=== PATIENT | female | born 1940 | race Caucasian/White ===

== ENCOUNTER 2023-09-05 14:03 | Emergency (ER) | payer MEDICARE, OTHER, SELFPAY ==
[2023-09-05 14:08] VITALS: BP 140/92
[2023-09-05 14:33] VITALS: BMI 32.8
--- NOTE | 2023-09-05 15:15 | EDRN ---
Dr. Weinberg in room w/ pt.
--- NOTE | 2023-09-05 15:40 | ED.GENMED ---
History of Present Illness
General
Chief Complaint: Fall
Source: patient and spouse
Time Seen by Provider: 09/05/23 15:13
History of Present Illness
History of Present Illness:
82-year-old female presents emergency department after describing a fall that happened approximate 1 PM. She says she 'turned too quickly', and fell down onto the ceramic kitchen floor. She did hold onto the counter while she was falling, and
states that her left knee 'took the bulk of the fall'. She was able to 'shimmy' her body over 2 steps, put her legs on the step and stand up. She is able to move and says 'I doubt I broke something' because she is able to ambulate but she does
note pain in bilateral knees left greater than right with walking. She denies ankle pain, foot pain, hip pain, abdominal pain, back pain, loss of consciousness, head strike, headache, dizziness, neck pain, numbness, tingling, chest pain, dyspnea,
or other complaints.
Past History
Past History
ED Past Medical History: COPD, Fibromyalgia, GERD, HTN, Hypercholesterolemia, NIDDM and Other (Lung Nodules, chronic pain)
ED Past Surgical History: Bowel resection (Diverticulitis with colostomy and then reversal), Cholecystectomy, Orthopedic (left hip replacement) and Urological (Bladder Surgery)
Social History
Tobacco: Former smoker
Alcohol: None
Personal:
Living: with family
Phy Exam
Physical Exam
Physical Exam:
GENERAL: Alert , in no apparent distress, overall well-appearing, making jokes
EYE: pupils equal and reactive, no photophobia
NECK: Supple, no significant adenopathy, no midline tenderness.
ENT: o/p clr, mmm, no blue, no raccoon, no signs of head or facial injury noted on exam.
CARDIAC: Regular rate and rhythm .
LUNGS: Clear breath sounds bilaterally, no acute respiratory distress, no wheezes/rales/rhonchi
ABDOMEN: Soft, without focal tenderness, no r/g, no cvat
Back no bruising noted, nontender to midline palpation
NEUROLOGICAL: Alert and oriented, no focal neuro deficits
SKIN: Warm and dry, skin intact.
MUSCULOSKELETAL: 2+ DP pulses bilaterally, well-perfused. There is swelling noted at the left greater than right patellar area with associated bruising and tenderness to palpation. No specific deformity noted. Able to flex at the hip without
difficulty. Knee range of motion slightly limited due to pain. Full range of motion of ankle foot etc. without discomfort or tenderness to palpation. Patient has full range of motion of her left elbow without associated swelling or bruising,
triage note noted.
PSYCH: Normal and appropriate interaction.
Course
Orders/Labs/Results
Orders:
Orders
09/05/23 15:32
Oxycodone [Roxicodone] 5 mg PO NOW STA
Knee, Left 4 or More Views [CR Knee - Left 4 Or More View*] Urgent
Comment:
Reason For Exam: fall
Knee, Right 4 or More Views [CR Knee- Right 4 Or More View*] Urgent
Comment:
Reason For Exam: fall
Vital Signs
Initial and Last Documented VS:
Initial Vital Signs
Temp Pulse Resp BP Pulse Ox
98.0 F 80 16 140/92 98
09/05/23 14:08 09/05/23 14:08 09/05/23 14:08 09/05/23 14:08 09/05/23 14:08
Last Documented Vital Signs
Temp Pulse Resp BP Pulse Ox
98.0 F 66 16 175/85 96
09/05/23 14:08 09/05/23 17:26 09/05/23 17:26 09/05/23 17:26 09/05/23 17:26
*Critical Care Note
Total Time (30-74mins, 75-104mins- exclusive of procedures): Not Applicable
Update Note
Update Note:
Patient presents to the Emergency Department with ___fall
Number and Complexity of Problems Addressed at the Encounter
� Chronic conditions affecting care:
� Acute Exacerbation and/or Progression of Chronic Illness:
� Differential Diagnosis includes: But not limited to contusion, sprain, fracture, etc.
Amount and/or Complexity of Data to be Reviewed and Analyzed
� I performed an independent evaluation of and my interpretation is:
EKG:
CT:
Xrays:nad bilat xray knees. formal report No radiographic evidence for acute fracture or joint effusion.
2. Moderate osteoarthritis in the medial compartment of the right knee.
3. Mild osteoarthritis in the lateral and patellofemoral compartments.
4. Severe diffuse soft tissue swelling and subcutaneous edema.
Laboratory Studies:
Other:
� Review of other/old records reveals:
� Clinical information was obtained by an independent historian: who is bedside
� Prescriptions/Medications Considered but not given:
� Further testing considered but not performed:
Risk of Complications and/or Morbidity or Mortality of Patient Management
� Social determinants of health affecting care:
� Discussion with other providers (PCP, Hospitalists, Consultants, etc):
� Escalation of care including admission/observation vs risk of discharge considered:Long discussion with patient and , she is eager to go home and reassured that no fracture noted. She was noted to walk around room
without great difficulty and plans to use her cane at home until she feels fully better. She declines a walker. She requests a wheelchair to get to the car but again reassures all of us that she does not have concerns about being able to ambulate
at home.
ED Attending Note
-
Portions of this chart may have been created with voice recognition software.� Occasional wrong word or��sound alike� substitutions may have occurred due to the inherent limitations of voice recognition software.
Discharge Plan
Departure
Patient Disposition: Home (Routine Discharge)
Date of Disposition: 09/05/23
Time of Disposition: 17:44
Patient with high blood pressure during this ER visit?: Yes
Condition: Good
Discharge Problem:
Contusion of knee
Instructions: Contusion (DC), Preventing falls in adults, BLOOD PRESSURE
Prescriptions:
No Action
aspirin 81 MG tablet,chewable
81 mg PO HS
albuterol sulfate [Ventolin HFA] 90 MCG/PUFF HFA aerosol inhaler
1 puff inhalation PRN PRN (Reason: sob)
Vit B12
50,000 unit PO DAILY
meloxicam 15 mg Tablet
15 mg PO HS
lisinopril 20 mg Tablet
20 mg PO HS
amlodipine 5 mg Tablet
5 mg PO HS
senna 8.6 mg Capsule
8.6 mg PO HS
pregabalin [Lyrica] 50 mg Capsule
50 mg PO BID
esomeprazole magnesium [address] For Susp In Packet
20 mg PO HS
fluticasone furoate-vilanterol [Breo Ellipta] 200-25 mcg/dose Blister With Device
1 inh INHALATION PRN PRN (Reason: shortness)
duloxetine 60 mg Capsule, Delayed Rel Sprinkle
60 mg PO HS
multivitamin Tablet
1 tab PO DAILY
ferrous sulfate [iron] 325 mg (65 mg iron) Tablet
325 mg PO DAILY
fentanyl 25 mcg/hr Patch 72 Hour
1 patch TRANSDERMAL Q72H
cholecalciferol (vitamin D3) [Vitamin D3] 50 mcg (2,000 unit) Capsule
50 mcg PO DAILY
oxycodone 5 mg tablet
5 mg PO Q6H PRN (Reason: Pain) Qty: 30 0RF
Referrals:
Alvaro Charles MD [Family Provider] - Follow up in 2-3 days
Activity Restrictions/Additional Instructions:
IF YOU DEVELOP PERSISTENT/NEW/WORSENING PAIN, ANY FEVER, CHILLS, NUMBNESS, WEAKNESS, OR OTHER WORRISOME SIGNS, GO TOTHE ER IMMEDIATELY!
Interventions
Interventions:
*Risk Screen - Suicide Last Done: 09/05/23 14:34
*General Assessment Last Done: 09/05/23 14:34
*Neglect/Abuse Screening Last Done: 09/05/23 14:34
ED- Fall Risk Assessment Last Done: 09/05/23 14:34
*ED COVID-19 Vaccine History Last Done: 09/05/23 14:34
ED-Musculoskeletal Assessment Last Done: 09/05/23 14:35
ED- Neurological Assessment Last Done: 09/05/23 14:35
ED-Skin Assessment Last Done: 09/05/23 15:26
Discharge Date and Time
Print Language: BULGARIAN
[2023-09-05] MEDS: ROXICODONE 5 MG PO (15:42)
[2023-09-05 15:47] VITALS: BP 142/78
--- NOTE | 2023-09-05 17:22 | EDRN ---
Dr. Weinberg in room w/ pt at this time.
[2023-09-05 17:26] VITALS: BP 175/85
== END 2023-09-05 17:50 | disposition home or self-care (01) ==
LOC: EMR 14:03
PROVIDERS: EMERGENCY PHYSICIAN Emergency Medicine; FAMILY PHYSICIAN Family Medicine
DX: S80.02XA Contusion of left knee, initial encounter (principal); S80.01XA Contusion of right knee, initial encounter; W19.XXXA Unspecified fall, initial encounter; J44.9 Chronic obstructive pulmonary disease, unspecified; M79.7 Fibromyalgia; K21.9 Gastro-esophageal reflux disease without esophagitis; I10 Essential (primary) hypertension; E78.00 Pure hypercholesterolemia, unspecified; E11.9 Type 2 diabetes mellitus without complications; G89.29 Other chronic pain; Z87.891 Personal history of nicotine dependence; Z90.49 Acquired absence of other specified parts of digestive tract
CPT/HCPCS: 99283; 73564

== ENCOUNTER 2023-09-12 00:56 | Emergency (ER) | payer MEDICARE, OTHER, SELFPAY ==
[2023-09-12 01:03] VITALS: BP 156/93
--- NOTE | 2023-09-12 01:19 | ED.GENMED ---
History of Present Illness
<CAESAR Yost - Last Filed: 09/12/23 03:13>
General
Chief Complaint: Musculo-Skeletal Complaint
Source: patient and significant other
Exam Limitations: none
Time Seen by Provider: 09/12/23 01:12
Nursing documentation reviewed up to this point in time: agreed with
History of Present Illness
History of Present Illness:
This is an 83 year old female presenting for evaluation of left leg pain and swelling. Pt was evaluated at [facility] on 09/04 following a fall onto her left knee, XR showed no fracture but did show significant soft tissue swelling. Pt adds that
her left leg pain and swelling have been progressively worsening over the last week, worsened with ambulation and standing. She is followed by a automotive painter once monthly and currently takes Lyrica 50 mg BID, meloxicam 15 mg daily, and
uses a fentanyl patch q72 hours. Pt reports that she applied a new fentanyl patch approximately 2 hours ago. It was recommended that pt use a cane or walker following her fall on 09/04, but pt states she has not been using these at home. Pain is
10/10 to palpation. No numbness/tingling, fever, chills, SOB, or CP reported.
Past History
<CAESAR Yost - Last Filed: 09/12/23 03:13>
Past History
ED Past Medical History: COPD, Fibromyalgia, GERD, HTN, Hypercholesterolemia, NIDDM and Other (Lung Nodules, chronic pain)
ED Past Surgical History: Bowel resection (Diverticulitis with colostomy and then reversal), Cholecystectomy, Orthopedic (left hip replacement) and Urological (Bladder Surgery)
Social History
Tobacco: Former smoker
Alcohol: None
Personal:
Living: with family
Review of Systems
<CAESAR Yost - Last Filed: 09/12/23 03:13>
Review of Systems
Allergies reviewed?: Yes
Constitutional: Reports no symptoms
EENT: Reports no symptoms
Respiratory: Reports no symptoms
Cardiac: Reports no symptoms
ABD/GI: Reports no symptoms
: Reports no symptoms
Musculoskeletal: Reports joint pain (left knee), muscle pain and edema
Neurological: Reports no symptoms
Hematologic/Lymphatic: Reports bruising (left lower extremity )
Phy Exam
<CAESAR Yost - Last Filed: 09/12/23 03:13>
General Physical Exam
General Presentation: well appearing
General age: appears stated age
General Skin: warm
General Habitus: normal
General Mental: alert
General Hydration: appears well hydrated
Cardiovascular Exam
Cardiovascular Exam: regular rate/rhythm
Pulmonary Exam
Pulmonary Exam: lungs clear and no respiratory distress
Neurological Exam
Neurological Exam: alert, oriented x3, no motor deficits and no sensory deficits
Musculoskeletal Exam
Musculoskeletal Exam: full ROM, edema (Generalized edema of left lower extremity. 2+ pitting edema of anterior left lower extremity ), neuro vasc intact and other (tender to palpation of left lower extremity )
Skin Exam
Skin Exam: other (patchy ecchymosis of left upper and left lower extremities )
Course
<CAESAR Yost - Last Filed: 09/12/23 03:13>
Orders/Labs/Results
Orders:
Orders
09/12/23 01:55
US Periph Venous LOWER Ext LT Urgent
Comment:
Reason For Exam: LLE edema pain s/p fall on knee 1 wk ago
09/12/23 03:17
Doxycycline [Vibramycin] 100 mg PO NOW STA
Vital Signs
Initial and Last Documented VS:
Initial Vital Signs
Pulse Resp BP Pulse Ox
77 16 156/93 97
09/12/23 01:03 09/12/23 01:03 09/12/23 01:03 09/12/23 01:03
Last Documented Vital Signs
Temp Pulse Resp BP Pulse Ox
98.4 F 77 16 156/93 97
09/12/23 01:06 09/12/23 01:03 09/12/23 01:03 09/12/23 01:03 09/12/23 01:03
<Fariba Mckay DO - Last Filed: 09/12/23 03:24>
Orders/Labs/Results
Orders:
Orders
09/12/23 01:55
US Periph Venous LOWER Ext LT Urgent
Comment:
Reason For Exam: LLE edema pain s/p fall on knee 1 wk ago
09/12/23 03:17
Doxycycline [Vibramycin] 100 mg PO NOW STA
Vital Signs
Initial and Last Documented VS:
Initial Vital Signs
Pulse Resp BP Pulse Ox
77 16 156/93 97
09/12/23 01:03 09/12/23 01:03 09/12/23 01:03 09/12/23 01:03
Last Documented Vital Signs
Temp Pulse Resp BP Pulse Ox
98.4 F 77 16 156/93 97
09/12/23 01:06 09/12/23 01:03 09/12/23 01:03 09/12/23 01:03 09/12/23 01:03
<CAESAR Yost - Last Filed: 09/12/23 03:13>
MDM/Problems Addressed
Differential Diagnosis Includes:
Left knee contusion, left knee effusion, DVT.
<CAESAR Yost - Last Filed: 09/12/23 03:13>
*Critical Care Note
Total Time (30-74mins, 75-104mins- exclusive of procedures): Not Applicable
<Fariba Mckay DO - Last Filed: 09/12/23 03:24>
*Radiology
Radiology exam reviewed: other (Venous Doppler left lower extremity negative for DVT)
*Pulse Oximetry
Patient hypoxic: no
ED Attending Note
<CAESAR Yost - Last Filed: 09/12/23 03:13>
-
Portions of this chart may have been created with voice recognition software.� Occasional wrong word or��sound alike� substitutions may have occurred due to the inherent limitations of voice recognition software.
<Fariba Mckay DO - Last Filed: 09/12/23 03:24>
ED Attending Note
Patient seen and examined by attending physician: Yes
I performed the substantive portion of visit, reviewed & personally made and approve the management plan that is documented in note by myself or HALLE.: Yes
ED Attending Note:
This is a orsibel 83-year-old woman who resides at home with her . She suffered a mechanical fall 1 week ago landing on bilateral knees and presented to this ED on that day with complaints of bilateral anterior knee pain left greater than
right. Was noted to have moderate swelling and bruising anterior knees, bilateral knee x-rays showed significant DJD, soft tissue swelling but no evidence of fracture.
She has been ambulating since injury, using her cane to assist with ambulation. She has had no recurrent falls but presents tonight with concerns for left lower leg swelling, bruising that seems much worse this evening.
She denies chest pain nor coughing or shortness of breath, denies dizziness or lightheadedness, denies ankle nor foot pain, no weakness nor numbness. She denies fever nor chills.
She takes no anticoagulants save for low-dose aspirin and quite frankly she is unsure if she has been compliant with her low-dose aspirin.
She does have history of chronic pain syndrome, chronically maintained on fentanyl 25 mcg patch, Lyrica, meloxicam 15 mg daily. She follows monthly with pain management.
GENERAL: 83-year-old woman appears her stated age, bright and alert, pleasant, quite chatty and appears in no acute distress. is accompanying.
EYE: pupils equal and round. Anicteric
NECK: Supple, nontender, no meningismus, no significant adenopathy.
ENT: oral mucosa is moist. No rhinorrhea.
CARDIAC: Regular rate and rhythm. no murmur.
LUNGS: Clear breath sounds bilaterally, no acute respiratory distress, no wheezes/rales/rhonchi
ABDOMEN: Soft, nondistended, without focal tenderness, no r/g, no cvat. normoactive BS.
NEUROLOGICAL: Alert and oriented x3, no focal neuro deficits. Motor strength is 5/5 bilaterally. Gross sensation is intact.
SKIN: Warm and dry, normal color, skin intact. No rash.
MUSCULOSKELETAL: Moderate global soft tissue swelling bilateral knees left greater than right with global nonpitting edema left lower leg and mild nonpitting edema right lower leg. There is dark purple ecchymosis extending from left lateral knee
down to left inferior ankle and similar but less pronounced dark purple to pale purple ecchymosis left anteromedial knee that tracks along the medial proximal lower leg. There is minimal erythema left anterolateral distal lower leg without palpable
heat nor palpable tenderness. There is no swelling to the feet bilaterally. There is full ankle range of motion without difficulty nor pain. Negative Homans' sign. Peripheral pulses are full and equal b/l. Mild generalized tenderness about the
left anterior, medial and lateral knee. Full knee range of motion with only mild pain with flexion greater than 90 degrees.
PSYCH: Normal and appropriate interaction.
Concern for DVT left lower extremity versus dependent edema, dependent ecchymosis related to subacute knee contusion.
Noted to have mild erythema left lower anterolateral leg there is no palpable heat, she is afebrile no reported fever. Nothing convincing for cellulitis.
Overall appears quite comfortable.
Will check ultrasound left lower extremity assess for potential DVT.
09/12/2023 0318 AM
Ultrasound is negative for DVT.
Patient remains afebrile but is noted to have some erythema anterior lower leg, there is potentially some concern for an early cellulitis. She remains afebrile.
According to , erythema of the lower leg is new. Patient herself believes she may have a mild element of erythema to her leg.
Will start a course of doxycycline for potential early cellulitis and recommend she elevate her leg when seated, apply local warm compresses.
Return precautions discussed including increasing redness especially if accompanied with increasing pain and fever.
Prompt follow-up with PCP and patient will be referred to orthopedics as well.
Discharge Plan
Departure
Patient Disposition: Home (Routine Discharge)
Date of Disposition: 09/12/23
Time of Disposition: 03:20
Patient with high blood pressure during this ER visit?: No
Condition: Good
Discharge Problem:
subacute contusion L anterior knee, dependent edema LLE, early cellulitis LLE
Instructions: Contusion (DC), Cellulitis (Skin Infection), Adult ED
Prescriptions:
New
doxycycline monohydrate 100 mg capsule
100 mg PO BID Qty: 14 1RF
No Action
aspirin 81 MG tablet,chewable
81 mg PO HS
albuterol sulfate [Ventolin HFA] 90 MCG/PUFF HFA aerosol inhaler
1 puff inhalation PRN PRN (Reason: sob)
Vit B12
50,000 unit PO DAILY
meloxicam 15 mg Tablet
15 mg PO HS
lisinopril 20 mg Tablet
20 mg PO HS
amlodipine 5 mg Tablet
5 mg PO HS
senna 8.6 mg Capsule
8.6 mg PO HS
pregabalin [Lyrica] 50 mg Capsule
50 mg PO BID
esomeprazole magnesium [address] For Susp In Packet
20 mg PO HS
fluticasone furoate-vilanterol [Breo Ellipta] 200-25 mcg/dose Blister With Device
1 inh INHALATION PRN PRN (Reason: shortness)
duloxetine 60 mg Capsule, Delayed Rel Sprinkle
60 mg PO HS
multivitamin Tablet
1 tab PO DAILY
ferrous sulfate [iron] 325 mg (65 mg iron) Tablet
325 mg PO DAILY
fentanyl 25 mcg/hr Patch 72 Hour
1 patch TRANSDERMAL Q72H
cholecalciferol (vitamin D3) [Vitamin D3] 50 mcg (2,000 unit) Capsule
50 mcg PO DAILY
oxycodone 5 mg tablet
5 mg PO Q6H PRN (Reason: Pain) Qty: 30 0RF
Referrals:
Alvaro Charles MD [Family Provider] - Call in 1-3 days for appt
Dimitri Bundy MD [Active] - Call in 1-3 days for appt
Interventions
Interventions:
*Risk Screen - Suicide Last Done: 09/12/23 01:04
*Neglect/Abuse Screening Last Done: 09/12/23 01:04
ED- Fall Risk Assessment Last Done: 09/12/23 01:21
ED-Musculoskeletal Assessment Last Done: 09/12/23 01:21
Discharge Date and Time
Print Language: BERMUDIAN
[2023-09-12] MEDS: VIBRAMYCIN 100 MG PO (03:47)
[2023-09-12 04:25] VITALS: BP 157/98
== END 2023-09-12 04:28 | disposition home or self-care (01) ==
LOC: EMR 00:56
PROVIDERS: EMERGENCY PHYSICIAN Emergency Medicine; FAMILY PHYSICIAN Family Medicine
DX: L03.116 Cellulitis of left lower limb (principal); S80.02XA Contusion of left knee, initial encounter; R60.0 Localized edema; W19.XXXA Unspecified fall, initial encounter; I10 Essential (primary) hypertension; J44.9 Chronic obstructive pulmonary disease, unspecified; M79.7 Fibromyalgia; R91.8 Other nonspecific abnormal finding of lung field; E78.00 Pure hypercholesterolemia, unspecified; K21.9 Gastro-esophageal reflux disease without esophagitis; E11.9 Type 2 diabetes mellitus without complications; K57.92 Diverticulitis of intestine, part unspecified, without perforation or abscess without bleeding; G89.29 Other chronic pain; Z96.642 Presence of left artificial hip joint; Z87.891 Personal history of nicotine dependence; Z79.899 Other long term (current) drug therapy; Z79.82 Long term (current) use of aspirin; Z90.49 Acquired absence of other specified parts of digestive tract; Z98.0 Intestinal bypass and anastomosis status; M17.0 Bilateral primary osteoarthritis of knee
CPT/HCPCS: 99284; 93971

== ENCOUNTER → 2023-09-22 15:18 | Outpatient (REF) | payer MEDICARE, OTHER, SELFPAY | LOC: RAD 15:18 | PROVIDERS: ATTENDING PHYSICIAN Nurse Practitioner Adult Health | DX: M79.89 Other specified soft tissue disorders (principal); M79.605 Pain in left leg | CPT/HCPCS: 93971 ==

== ENCOUNTER → 2024-04-27 12:21 | Outpatient (REF) | payer MEDICARE, OTHER, SELFPAY | LOC: WOUND 12:21 | PROVIDERS: ATTENDING PHYSICIAN Surgery; REFERRING PHYSICIAN Family Medicine | DX: L89.322 Pressure ulcer of left buttock, stage 2 (principal); L89.311 Pressure ulcer of right buttock, stage 1; J44.9 Chronic obstructive pulmonary disease, unspecified; E66.9 Obesity, unspecified | CPT/HCPCS: 99203 ==

== ENCOUNTER → 2024-05-04 13:39 | Outpatient (REF) | payer MEDICARE, OTHER, SELFPAY | LOC: WOUND 13:39 | PROVIDERS: ATTENDING PHYSICIAN Surgery; FAMILY PHYSICIAN Family Medicine | DX: L89.322 Pressure ulcer of left buttock, stage 2 (principal); L89.311 Pressure ulcer of right buttock, stage 1; J44.9 Chronic obstructive pulmonary disease, unspecified; E66.9 Obesity, unspecified | CPT/HCPCS: 97597 ==

== ENCOUNTER → 2024-05-11 08:43 | Outpatient (REF) | payer MEDICARE, OTHER, SELFPAY | LOC: WOUND 08:43 | PROVIDERS: ATTENDING PHYSICIAN Surgery | DX: L89.322 Pressure ulcer of left buttock, stage 2 (principal); L89.311 Pressure ulcer of right buttock, stage 1; J44.9 Chronic obstructive pulmonary disease, unspecified; E66.9 Obesity, unspecified | CPT/HCPCS: 97597 ==

== ENCOUNTER → 2024-05-18 11:08 | Outpatient (REF) | payer MEDICARE, OTHER, SELFPAY | LOC: WOUND 11:08 | PROVIDERS: ATTENDING PHYSICIAN Surgery | DX: L89.322 Pressure ulcer of left buttock, stage 2 (principal); L89.311 Pressure ulcer of right buttock, stage 1; J44.9 Chronic obstructive pulmonary disease, unspecified; E66.9 Obesity, unspecified | CPT/HCPCS: 97597 ==

== ENCOUNTER → 2024-05-25 09:01 | Outpatient (REF) | payer MEDICARE, OTHER, SELFPAY | LOC: WOUND 09:01 | PROVIDERS: ATTENDING PHYSICIAN Surgery | DX: L89.322 Pressure ulcer of left buttock, stage 2 (principal); L89.311 Pressure ulcer of right buttock, stage 1; J44.9 Chronic obstructive pulmonary disease, unspecified; E66.9 Obesity, unspecified | CPT/HCPCS: 97597 ==

== ENCOUNTER → 2024-06-07 11:45 | Outpatient (REF) | payer MEDICARE, OTHER, SELFPAY ==
[2024-06-07 17:24] LABS: % Basophils 0.9 % (0-2); % Eosinophils 4.6 % (0-6); % Immature Granulocytes 0.3 % (0-0.5); % Lymphocytes 24.5 % (20.5-51.1); % Monocytes 12.4 % (1.7-9.3); % Neutrophils 57.3 % (42.2-75.2); Absolute Basophils 0.1 10^3/uL (0-0.2); Absolute Eosinophils 0.3 10^3/uL (0-0.7); Absolute Lymphocytes 1.6 10^3/uL (1.2-3.4); Absolute Monocytes 0.8 10^3/uL (0.1-0.6); Absolute Neutrophils 3.7 10^3/uL (1.4-6.5); Hemoglobin 10.1 g/dL (12.0-16.0); Mean Corp Hgb Conc. 30.6 g/dL (33.0-37.0); Mean Corpuscular Hgb 26.6 pg (27.0-31.0); Mean Corpuscular Volume 86.8 fL (81.0-99.0); Mean Platelet Volume 10.7 fL (7.4-10.4); Nucleated Red Blood Cells % 0 %; Platelet Count 197 10^3/uL (130-400); White Blood Cell Count 6.4 10^3/uL (4.8-10.8)
[2024-06-07 17:40] LABS: ALT (SGPT) 15 U/L (0-35); AST (SGOT) 19 U/L (14-36); Albumin 2.6 g/dl (3.5-5.0); Alkaline Phosphatase 175 U/L (38-126); Blood Urea Nitrogen 19 mg/dl (7-17); Calcium 8.4 mg/dl (8.4-10.2); Carbon Dioxide 25 mmol/L (22-30); Chloride 106 mmol/L (98-107); Glucose 84 mg/dl (70-99); Iron 47 ug/dl (37-170); Potassium 4.3 mmol/L (3.5-5.1); Sodium 138 mmol/L (135-145); Total Bilirubin 0.5 mg/dl (0.2-1.3); Total Protein 5.4 g/dl (6.3-8.2); eGFR 34.58
[2024-06-07 17:51] LABS: Percent Saturation 19 % (20-50); Total Iron Binding Capacity 242 ug/dl (265-497)
[2024-06-07 17:59] LABS: Vitamin D, 25-OH*** < 12.8 ng/mL (30-80)
[2024-06-07 18:14] LABS: Ferritin 8.4 ng/ml (11.1-264.0)
[2024-06-07 18:29] LABS: Vitamin B12 > 1000 pg/ml (239-931)
== END ==
LOC: HWLAB 11:45
PROVIDERS: ATTENDING PHYSICIAN Family Medicine
DX: N18.32 Chronic kidney disease, stage 3b (principal); E53.8 Deficiency of other specified B group vitamins; E55.9 Vitamin D deficiency, unspecified; D50.9 Iron deficiency anemia, unspecified
CPT/HCPCS: 36415; 80053; 82306; 82607; 82728; 83540; 83550; 85025

== ENCOUNTER → 2024-06-15 13:12 | Outpatient (REF) | payer MEDICARE, OTHER, SELFPAY | LOC: WOUND 13:12 | PROVIDERS: ATTENDING PHYSICIAN Surgery | DX: L89.322 Pressure ulcer of left buttock, stage 2 (principal); L89.311 Pressure ulcer of right buttock, stage 1; J44.9 Chronic obstructive pulmonary disease, unspecified; E66.9 Obesity, unspecified | CPT/HCPCS: 11042 ==

== ENCOUNTER → 2024-06-29 13:03 | Outpatient (REF) | payer MEDICARE, OTHER, SELFPAY | LOC: WOUND 13:03 | PROVIDERS: ATTENDING PHYSICIAN Surgery | DX: L89.322 Pressure ulcer of left buttock, stage 2 (principal); L89.311 Pressure ulcer of right buttock, stage 1; J44.9 Chronic obstructive pulmonary disease, unspecified; E66.9 Obesity, unspecified | CPT/HCPCS: 99212 ==

== ENCOUNTER 2024-07-31 19:39 | Emergency (ER) | payer MEDICARE, OTHER, SELFPAY ==
[2024-07-31 19:50] VITALS: BP 154/84
--- NOTE | 2024-07-31 20:30 | ED.GENMED ---
History of Present Illness
General
Chief Complaint: Fall
Source: patient
Exam Limitations: none
Time Seen by Provider: 07/31/24 20:22
History of Present Illness
History of Present Illness:
Patient tripped and fell up the stairs. Hitting both knees left arm at the elbow. Complaining of headache left elbow pain and bilateral knee pain. No syncope. No chest pain shortness of breath abdominal pain or other complaints
Past History
Past History
ED Past Medical History: COPD, Fibromyalgia, GERD, HTN, Hypercholesterolemia, NIDDM and Other (Lung Nodules, chronic pain)
ED Past Surgical History: Bowel resection (Diverticulitis with colostomy and then reversal), Cholecystectomy, Orthopedic (left hip replacement) and Urological (Bladder Surgery)
Social History
Tobacco: Former smoker
Alcohol: None
Personal:
Living: with family
Review of Systems
Review of Systems
All Other Systems: Not applicable
Respiratory: Reports no symptoms
Cardiac: Reports no symptoms
ABD/GI: Reports no symptoms
Phy Exam
Physical Exam
Physical Exam:
TRAUMA EXAM:
VITAL SIGNS: Vital signs reviewed, cooperative
DISTRESS: No active disease
EYES: Pupils reactive, no orbital trauma
NOSE: No deformity or epistaxis
FACE AND SCALP: No scalp trauma, external canals no blood. Tenderness to the left frontotemporal area. Mild swelling.
NECK: Supple nontender
BACK: Back nontender, pelvis stable to compression
RESPIRATORY: No distress, breath sounds normal, no tender chest wall
CARDIAC: No murmur, pulses equal and strong
ABDOMEN: Soft nontender bowel sounds normal
SKIN: Skin intact no bleed tendon
Musculoskeletal: Tenderness over the left olecranon. Good range of motion of the elbow. Left upper extremity unremarkable otherwise. Good distal pulses and color. Tenderness to both knees with some areas of ecchymosis just distal to patella.
Able to straight leg raise bilaterally. Knees are stable. Hips are nontender. Good range of motion of the hips. Extremities unremarkable otherwise
NEUROLOGICAL: Alert, oriented, no motor deficits
PSYCH: Mood affect normal
Course
Orders/Labs/Results
Orders:
Orders
07/31/24 20:28
CT Head W/o Iv Contrast Urgent
Comment:
Reason For Exam: Left forehead trauma
Elbow, Left [CR Elbow - Left Min 3 Views ] Urgent
Comment:
Reason For Exam: trauma
Knee, Left 4 or More Views [CR Knee - Left 4 Or More View*] Urgent
Comment:
Reason For Exam: blunt trauma
Knee, Right 4 or More Views [CR Knee- Right 4 Or More View*] Urgent
Comment:
Reason For Exam: blunt trauma
Vital Signs
Initial and Last Documented VS:
Initial Vital Signs
Temp Pulse Resp BP Pulse Ox
98.0 F 70 20 154/84 98
07/31/24 19:50 07/31/24 19:50 07/31/24 19:50 07/31/24 19:50 07/31/24 19:50
Last Documented Vital Signs
Temp Pulse Resp BP Pulse Ox
98.0 F 70 20 154/84 98
07/31/24 19:50 07/31/24 19:50 07/31/24 19:50 07/31/24 19:50 07/31/24 19:50
MDM/Problems Addressed
Differential Diagnosis Includes:
Patient not describing a syncopal episode. Was clearly a trip and fall. Fully awake alert and oriented no thinners but with mechanism of head injury and age we will get a CT of the head. She has absolutely no cervical symptoms. She has no chest
or abdominal symptoms. Extremities are likely contusions but x-rays will be done for completeness.
*Radiology
Radiology exam reviewed: preliminary read by ED provider (Negative x-rays) and radiology read reviewed (Negative head CT)
*Pulse Oximetry
Patient hypoxic: no
*Critical Care Note
Total Time (30-74mins, 75-104mins- exclusive of procedures): Not Applicable
Data Reviewed
Review of Other/Old Records Reveals: Labs and Testing
Update Note
Update Note:
Radiologic testing stable. Patient rechecked and clinically stable. Discharged to follow-up
ED Attending Note
-
Portions of this chart may have been created with voice recognition software.� Occasional wrong word or��sound alike� substitutions may have occurred due to the inherent limitations of voice recognition software.
Discharge Plan
Departure
Patient Disposition: Home (Routine Discharge)
Date of Disposition: 07/31/24
Time of Disposition: 21:33
Patient with high blood pressure during this ER visit?: Yes
Discharge Problem:
Close head injury, Multiple contusions
Instructions: Head Injury in Adults (DC), Contusion (DC), BLOOD PRESSURE
Prescriptions:
No Action
aspirin 81 MG tablet,chewable
81 mg PO HS
albuterol sulfate [Ventolin HFA] 90 MCG/PUFF HFA aerosol inhaler
1 puff inhalation PRN PRN (Reason: sob)
Vit B12
50,000 unit PO DAILY
meloxicam 15 mg Tablet
15 mg PO HS
lisinopril 20 mg Tablet
20 mg PO HS
amlodipine 5 mg Tablet
5 mg PO HS
senna 8.6 mg Capsule
8.6 mg PO HS
pregabalin [Lyrica] 50 mg Capsule
50 mg PO BID
esomeprazole magnesium [address] For Susp In Packet
20 mg PO HS
fluticasone furoate-vilanterol [Breo Ellipta] 200-25 mcg/dose Blister With Device
1 inh INHALATION PRN PRN (Reason: shortness)
duloxetine 60 mg Capsule, Delayed Rel Sprinkle
60 mg PO HS
multivitamin Tablet
1 tab PO DAILY
ferrous sulfate [iron] 325 mg (65 mg iron) Tablet
325 mg PO DAILY
fentanyl 25 mcg/hr Patch 72 Hour
1 patch TRANSDERMAL Q72H
cholecalciferol (vitamin D3) [Vitamin D3] 50 mcg (2,000 unit) Capsule
50 mcg PO DAILY
oxycodone 5 mg tablet
5 mg PO Q6H PRN (Reason: Pain) Qty: 30 0RF
doxycycline monohydrate 100 mg capsule
100 mg PO BID Qty: 14 1RF
Activity Restrictions/Additional Instructions:
Follow-up closely with your primary physician
Interventions
Interventions:
*Risk Screen - Suicide Last Done: 07/31/24 19:50
*General Assessment Last Done: 07/31/24 19:50
*Neglect/Abuse Screening Last Done: 07/31/24 19:50
*ED- Fall Risk Assessment Last Done: 07/31/24 19:50
*ED COVID-19 Vaccine History Last Done: 07/31/24 19:50
*Nursing Disposition Last Done: 07/31/24 21:47
ED-Musculoskeletal Assessment Last Done: 07/31/24 21:20
ED- Neurological Assessment Last Done: 07/31/24 21:20
ED-Skin Assessment Last Done: 07/31/24 21:20
Discharge Date and Time
Discharge Date/Time: 07/31/24 21:48
Print Language: AMHARIC
== END 2024-07-31 21:48 | disposition home or self-care (01) ==
LOC: EMR 19:39
PROVIDERS: EMERGENCY PHYSICIAN Emergency Medicine; FAMILY PHYSICIAN Family Medicine
DX: S09.90XA Unspecified injury of head, initial encounter (principal); S80.02XA Contusion of left knee, initial encounter; S80.01XA Contusion of right knee, initial encounter; W10.9XXA Fall (on) (from) unspecified stairs and steps, initial encounter; R51.9 Headache, unspecified; M25.522 Pain in left elbow; M25.561 Pain in right knee; M25.562 Pain in left knee; J44.9 Chronic obstructive pulmonary disease, unspecified; M79.7 Fibromyalgia; K21.9 Gastro-esophageal reflux disease without esophagitis; I10 Essential (primary) hypertension; E78.00 Pure hypercholesterolemia, unspecified; E11.9 Type 2 diabetes mellitus without complications; R91.8 Other nonspecific abnormal finding of lung field; Z87.891 Personal history of nicotine dependence; Z90.49 Acquired absence of other specified parts of digestive tract
CPT/HCPCS: 99284; 70450; 73080; 73564

== ENCOUNTER → 2024-12-13 12:21 | Outpatient (REF) | payer MEDICARE, OTHER, SELFPAY ==
[2024-12-13 15:33] LABS: Hematocrit 30.8 % (37.0-47.0); Hemoglobin 9.5 g/dL (12.0-16.0); Mean Corp Hgb Conc. 30.8 g/dL (33.0-37.0); Mean Corpuscular Volume 90.3 fL (81.0-99.0); Nucleated Red Blood Cells % 0 %; Platelet Count 197 10^3/uL (130-400); Red Cell Dist. Width 15.8 % (11.5-14.5); Reticulocyte Count 1.4 % (0.4-2.8)
[2024-12-13 15:39] LABS: ALT (SGPT) 16 U/L (0-35); AST (SGOT) 18 U/L (14-36); Albumin 2.3 g/dl (3.5-5.0); Alkaline Phosphatase 127 U/L (38-126); Blood Urea Nitrogen 34 mg/dl (7-17); Calcium 8.2 mg/dl (8.4-10.2); Carbon Dioxide 25 mmol/L (22-30); Chloride 111 mmol/L (98-107); Glucose 74 mg/dl (70-99); HDL Cholesterol 76 mg/dl; Iron 53 ug/dl (37-170); LDL Cholesterol, Calculated 2 mg/dl; Potassium 4.8 mmol/L (3.5-5.1); Sodium 134 mmol/L (135-145); Total Protein 5.3 g/dl (6.3-8.2); Very Low Density Lipoprotein 16 mg/dl (0-30); eGFR 25.88
[2024-12-13 15:48] LABS: Total Iron Binding Capacity 202 ug/dl (265-497)
[2024-12-13 15:55] LABS: Microalb - Urine Creatinine 157.600 mg/dl
[2024-12-13 15:56] LABS: Vitamin D, 25-OH*** 20.4 ng/mL (30-80)
[2024-12-13 16:13] LABS: Ferritin 13.0 ng/ml (11.1-264.0)
[2024-12-13 17:21] LABS: Microalbumin, Random Urine 39.1 mg/dl (0.6-1.7)
[2024-12-14 10:31] LABS: Glycohemoglobin (HgbA1c) 4.7 % (4.0-5.9)
== END ==
LOC: HWLAB 12:21
PROVIDERS: ATTENDING PHYSICIAN Nurse Practitioner; FAMILY PHYSICIAN Family Medicine; REFERRING PHYSICIAN Internal Medicine
DX: R06.02 Shortness of breath (principal); E78.5 Hyperlipidemia, unspecified; E55.9 Vitamin D deficiency, unspecified; I10 Essential (primary) hypertension; D50.9 Iron deficiency anemia, unspecified
CPT/HCPCS: 36415; 80053; 80061; 82043; 82306; 82570; 82728; 83036; 83540; 83550; 83970; 84443; 85025; 85045

== ENCOUNTER → 2024-12-17 12:07 | Outpatient (REF) | payer MEDICARE, OTHER, SELFPAY ==
[2024-12-17 12:55] LABS: Hematocrit 33.9 % (37.0-47.0); Hemoglobin 10.2 g/dL (12.0-16.0); Mean Corp Hgb Conc. 30.1 g/dL (33.0-37.0); Mean Corpuscular Volume 93.9 fL (81.0-99.0); Nucleated Red Blood Cells % 0 %; Platelet Count 194 10^3/uL (130-400); Red Cell Dist. Width 15.6 % (11.5-14.5)
[2024-12-17 13:17] LABS: ALT (SGPT) 20 U/L (0-35); AST (SGOT) 25 U/L (14-36); Albumin 2.6 g/dl (3.5-5.0); Alkaline Phosphatase 143 U/L (38-126); Blood Urea Nitrogen 31 mg/dl (7-17); Calcium 8.0 mg/dl (8.4-10.2); Carbon Dioxide 23 mmol/L (22-30); Chloride 112 mmol/L (98-107); Glucose 74 mg/dl (70-99); HDL Cholesterol 85 mg/dl; Iron 51 ug/dl (37-170); LDL Cholesterol, Calculated 0 mg/dl; Potassium 4.2 mmol/L (3.5-5.1); Sodium 140 mmol/L (135-145); Total Protein 5.5 g/dl (6.3-8.2); Very Low Density Lipoprotein 15 mg/dl (0-30); eGFR 25.88
[2024-12-17 13:32] LABS: Vitamin D, 25-OH*** 23.8 ng/mL (30-80)
[2024-12-17 13:50] LABS: Ferritin 13.5 ng/ml (11.1-264.0)
[2024-12-17 14:21] LABS: Folate 11.0 ng/ml (2.76-20); Vitamin B12 860 pg/ml (239-931)
[2024-12-19 19:43] LABS: Vitamin B1, Whole Blood 167 nmol/L (70-180)
== END ==
LOC: REG 12:07
PROVIDERS: ATTENDING PHYSICIAN Nurse Practitioner Adult Health; FAMILY PHYSICIAN Family Medicine
DX: E88.09 Other disorders of plasma-protein metabolism, not elsewhere classified (principal); E55.9 Vitamin D deficiency, unspecified; E53.8 Deficiency of other specified B group vitamins; N18.32 Chronic kidney disease, stage 3b; Z98.84 Bariatric surgery status; I10 Essential (primary) hypertension; K21.9 Gastro-esophageal reflux disease without esophagitis; D50.9 Iron deficiency anemia, unspecified; E78.00 Pure hypercholesterolemia, unspecified
CPT/HCPCS: 36415; 80053; 80061; 82248; 82306; 82330; 82607; 82728; 82746; 83540; 83970; 84425; 85025

== ENCOUNTER → 2024-12-19 11:39 | Outpatient (REF) | payer MEDICARE, OTHER, SELFPAY ==
[2024-12-19 13:10] LABS: ALT (SGPT) 22 U/L (0-35); AST (SGOT) 22 U/L (14-36); Albumin 2.4 g/dl (3.5-5.0); Alkaline Phosphatase 147 U/L (38-126); Blood Urea Nitrogen 36 mg/dl (7-17); Calcium 8.1 mg/dl (8.4-10.2); Carbon Dioxide 22 mmol/L (22-30); Chloride 112 mmol/L (98-107); Glucose 90 mg/dl (70-99); Potassium 4.3 mmol/L (3.5-5.1); Sodium 138 mmol/L (135-145); Total Protein 5.3 g/dl (6.3-8.2); eGFR 22.95
== END ==
LOC: REG 11:39
PROVIDERS: ATTENDING PHYSICIAN Nurse Practitioner; FAMILY PHYSICIAN Nurse Practitioner Adult Health
DX: R06.00 Dyspnea, unspecified (principal); R06.02 Shortness of breath
CPT/HCPCS: 36415; 71046; 80053

== ENCOUNTER 2025-01-22 12:49 | Emergency (ER) | payer MEDICARE, OTHER, SELFPAY ==
[2025-01-22 12:56] VITALS: BP 185/99
[2025-01-22 13:28] LABS: Hematocrit 34.2 % (37.0-47.0); Hemoglobin 11.0 g/dL (12.0-16.0); Mean Corp Hgb Conc. 32.2 g/dL (33.0-37.0); Mean Corpuscular Volume 91.2 fL (81.0-99.0); Nucleated Red Blood Cells % 0 %; Platelet Count 162 10^3/uL (130-400); Red Cell Dist. Width 14.7 % (11.5-14.5)
[2025-01-22 13:46] LABS: ALT (SGPT) 15 U/L (0-35); AST (SGOT) 18 U/L (14-36); Albumin 2.4 g/dl (3.5-5.0); Alkaline Phosphatase 141 U/L (38-126); Blood Urea Nitrogen 21 mg/dl (7-17); Calcium 8.1 mg/dl (8.4-10.2); Carbon Dioxide 25 mmol/L (22-30); Chloride 110 mmol/L (98-107); Glucose 87 mg/dl (70-99); Lipase 30 U/L (23-300); Potassium 3.9 mmol/L (3.5-5.1); Sodium 138 mmol/L (135-145); Total Protein 5.6 g/dl (6.3-8.2); eGFR 31.80
--- NOTE | 2025-01-22 16:11 | ED.GENMED ---
History of Present Illness
<Neal Dupree PA-C - Last Filed: 01/22/25 20:14>
General
Chief Complaint: Abdominal Pain
Source: patient
Exam Limitations: none
Time Seen by Provider: 01/22/25 15:54
History of Present Illness
History of Present Illness:
84-year-old female presents complaining of multiple issues including progressive weakness over the past 1 to 2 weeks. She notes she is significantly short of breath now with increased abdominal pain and vomiting. She also describes gradually
worsening headache that is pressure in nature to the top of her head. She notes she is dizzy. She denies fevers but had sweats today. No chest pain. She has been pretty much bedbound over the past several days. She has not been drinking or
eating as much she should.
Past History
<Neal Dupree PA-C - Last Filed: 01/22/25 20:14>
Past History
ED Past Medical History: COPD, Fibromyalgia, GERD, HTN, Hypercholesterolemia, NIDDM and Other (Lung Nodules, chronic pain)
ED Past Surgical History: Bowel resection (Diverticulitis with colostomy and then reversal), Cholecystectomy, Orthopedic (left hip replacement) and Urological (Bladder Surgery)
Social History
Tobacco: Former smoker
Alcohol: None
Personal:
Living: with family
Phy Exam
<Neal Dupree PA-C - Last Filed: 01/22/25 20:14>
Physical Exam
Physical Exam:
General: Well-appearing female no acute respiratory distress
HEENT: Normal cephalic atraumatic pupils equal round reactive to light
Heart: Regular rate and rhythm lungs: Clear no wheeze
Abdomen is soft mildly diffusely tender extremities: 1+ pitting edema bilateral lower extremities
Skin: Warm no rash
Neurologic exam: Alert and oriented no facial asymmetry conversing appropriately. No unilateral deficit
Course
<Neal Dupree PA-C - Last Filed: 01/22/25 20:14>
Orders/Labs/Results
Orders:
Orders
01/22/25 13:02
IV Insert/Care/Rem.- Treatment PRN
01/22/25 13:16
Complete Blood Count/With Diff Urgent
Comprehensive Metabolic Panel Urgent
Lipase Urgent
01/22/25 16:10
CT Head W/o Iv Contrast Urgent
Comment:
Reason For Exam: headache
CR Chest - 2 Views Urgent
Comment:
Reason For Exam: sob
01/22/25 16:40
CT Abd/pel Without Iv Or Oral Urgent
Comment:
Reason For Exam: abdominal pain, vomiting
01/22/25 16:57
NT-proBNP Urgent
Troponin I Urgent
01/22/25 16:59
COVID-19 Antigen Urgent
Source: Nasal Swab
Urinalysis Reflex To Culture Urgent
Date Specimen was Collected: 01/22/25
Time Specimen was Collected: 16:46
Urine Microscopic Reflex Cult Urgent
Influenza A+B Rapid Molecular Urgent
AMADA Source: Nasal Swab
Specimen Description:
Urine Culture Urgent
AMADA Source: U
Specimen Description:
Date Specimen was Collected: 01/22/25
Time Specimen was Collected: 16:46
01/22/25 17:[address] Non Medication Order As Directed
Physician Order: Please do ambulatory pulse ox if she is able
Above order entered?: Yes
Abnormal Lab Results
01/22/25 01/22/25
13:16 16:59
RBC 3.75 L 10^6/uL
(4.20-5.40)
Hgb 11.0 L g/dL
(12.0-16.0)
Hct 34.2 L %
(37.0-47.0)
MCHC 32.2 L g/dL
(33.0-37.0)
RDW 14.7 H %
(11.5-14.5)
MPV 10.5 H fL
(7.4-10.4)
Absolute Monos (auto) 0.7 H 10^3/uL
(0.1-0.6)
Lymphocytes % 17.8 L %
(20.5-51.1)
Monocytes % 9.8 H %
(1.7-9.3)
Chloride 110 H mmol/L
(98-107)
BUN 21 H mg/dl
(7-17)
Creatinine 1.6 H mg/dL
(0.6-1.0)
Calcium 8.1 L mg/dl
(8.4-10.2)
Alkaline Phosphatase 141 H U/L
(38-126)
Total Protein 5.6 L g/dl
(6.3-8.2)
Albumin 2.4 L g/dl
(3.5-5.0)
Leukocyte Esterase Rfl 3+ A
(Negative)
Urine WBC (Reflex) 26-30 A /HPF
(0-5)
Urine Bacteria (Reflex) Many A
(Negative)
Urine Albumin (Reflex) 1+ A
(Neg - Trace)
01/22/25 13:16
01/22/25 13:16
Vital Signs
Initial and Last Documented VS:
Initial Vital Signs
Temp Pulse Resp BP Pulse Ox
97.8 F 65 20 185/99 95
01/22/25 12:56 01/22/25 12:56 01/22/25 12:56 01/22/25 12:56 01/22/25 12:56
Last Documented Vital Signs
Temp Pulse Resp BP Pulse Ox
97.8 F 72 19 185/99 98
01/22/25 12:56 01/22/25 19:45 01/22/25 19:45 01/22/25 12:56 01/22/25 19:45
<Verónica Weinberg MD - Last Filed: 01/22/25 20:04>
Orders/Labs/Results
Orders:
Orders
01/22/25 13:02
IV Insert/Care/Rem.- Treatment PRN
01/22/25 13:16
Complete Blood Count/With Diff Urgent
Comprehensive Metabolic Panel Urgent
Lipase Urgent
01/22/25 16:10
CT Head W/o Iv Contrast Urgent
Comment:
Reason For Exam: headache
CR Chest - 2 Views Urgent
Comment:
Reason For Exam: sob
01/22/25 16:40
CT Abd/pel Without Iv Or Oral Urgent
Comment:
Reason For Exam: abdominal pain, vomiting
01/22/25 16:57
NT-proBNP Urgent
Troponin I Urgent
01/22/25 16:59
COVID-19 Antigen Urgent
Source: Nasal Swab
Urinalysis Reflex To Culture Urgent
Date Specimen was Collected: 01/22/25
Time Specimen was Collected: 16:46
Urine Microscopic Reflex Cult Urgent
Influenza A+B Rapid Molecular Urgent
AMADA Source: Nasal Swab
Specimen Description:
Urine Culture Urgent
AMADA Source: U
Specimen Description:
Date Specimen was Collected: 01/22/25
Time Specimen was Collected: 16:46
01/22/25 17:[address] Non Medication Order As Directed
Physician Order: Please do ambulatory pulse ox if she is able
Above order entered?: Yes
Abnormal Lab Results
01/22/25 01/22/25
13:16 16:59
RBC 3.75 L 10^6/uL
(4.20-5.40)
Hgb 11.0 L g/dL
(12.0-16.0)
Hct 34.2 L %
(37.0-47.0)
MCHC 32.2 L g/dL
(33.0-37.0)
RDW 14.7 H %
(11.5-14.5)
MPV 10.5 H fL
(7.4-10.4)
Absolute Monos (auto) 0.7 H 10^3/uL
(0.1-0.6)
Lymphocytes % 17.8 L %
(20.5-51.1)
Monocytes % 9.8 H %
(1.7-9.3)
Chloride 110 H mmol/L
(98-107)
BUN 21 H mg/dl
(7-17)
Creatinine 1.6 H mg/dL
(0.6-1.0)
Calcium 8.1 L mg/dl
(8.4-10.2)
Alkaline Phosphatase 141 H U/L
(38-126)
Total Protein 5.6 L g/dl
(6.3-8.2)
Albumin 2.4 L g/dl
(3.5-5.0)
Leukocyte Esterase Rfl 3+ A
(Negative)
Urine WBC (Reflex) 26-30 A /HPF
(0-5)
Urine Bacteria (Reflex) Many A
(Negative)
Urine Albumin (Reflex) 1+ A
(Neg - Trace)
01/22/25 13:16
01/22/25 13:16
Vital Signs
Initial and Last Documented VS:
Initial Vital Signs
Temp Pulse Resp BP Pulse Ox
97.8 F 65 20 185/99 95
01/22/25 12:56 01/22/25 12:56 01/22/25 12:56 01/22/25 12:56 01/22/25 12:56
Last Documented Vital Signs
Temp Pulse Resp BP Pulse Ox
97.8 F 72 19 185/99 98
01/22/25 12:56 01/22/25 19:45 01/22/25 19:45 01/22/25 12:56 01/22/25 19:45
<Neal Dupree PA-C - Last Filed: 01/22/25 20:14>
MDM/Problems Addressed
Differential Diagnosis Includes:
Patient with multiple complaints most profoundly she complains of fatigue and being bedbound but also notes headache abdominal pain and shortness of breath. Consider viral illness versus electrolyte abnormality versus anemia. Will check CT of
head, COVID flu chest x-ray BNP and CT of the abdomen
<MIAN Porter Last Filed: 01/22/25 20:14>
*Pulse Oximetry
SaO2: 95
Oxygen Mode of Delivery: Room air
Patient hypoxic: no
*Critical Care Note
Total Time (30-74mins, 75-104mins- exclusive of procedures): Not Applicable
<Neal Dupree PA-C - Last Filed: 01/22/25 20:14>
Update Note
Update Note:
Workup here reviewed with CT of the head showing no acute findings. CT of the abdomen without acute finding. There is a small pleural effusion on the left side but walking pulse ox is normal. Flu and COVID were negative. Discussed with emergency
room attending saw the patient as well. No overwhelming indication for admission. Will discharge with follow-up with family doctor. Urinalysis contaminated with large amount of squamous cells. Patient not having any urinary symptoms. Would not
treat
ED Attending Note
<Neal Dupree PA-C - Last Filed: 01/22/25 20:14>
-
Portions of this chart may have been created with voice recognition software.� Occasional wrong word or��sound alike� substitutions may have occurred due to the inherent limitations of voice recognition software.
<Verónica Weinberg MD - Last Filed: 01/22/25 20:04>
ED Attending Note
Patient seen and examined by attending physician: Yes
I performed the substantive portion of visit, reviewed & personally made and approve the management plan that is documented in note by myself or HALLE.: Yes
ED Attending Note:
This patient is a very pleasant 84-year-old female presents emergency department with her via EMS with many different medical complaints. She has longstanding symptoms such as a feeling of 'pressure on top of my head', and dyspnea on
exertion for which she had an extensive evaluation with both cardiology and pulmonary. She says that today when she was getting out of bed she felt like everything was spinning around and she felt nauseous. This lasted about a minute and then
resolved completely. She denies chest pain, fever, chills, ear pain or tinnitus, cough, sore throat. The headache that she is describing is somewhat chronic in nature, not positional, not associated with exacerbating relieving factors, and not
different than usual. She denies neck pain, numbness, tingling, focal weakness, double vision, change in swallowing, change in speech. She does note that she has not had much to eat today because she is just really tired. She says she has been
feeling these symptoms on and off in regards to fatigue and mild anorexia for about a week, and saw her doctor about this. Here in the ER she says she feels pretty good, and is very hungry and would like something to eat. She denies abdominal pain
to me although it is noted in the triage note. Exam generally unremarkable, chronic lower extremity edema, heart regular rate and rhythm, lungs CTA, no respiratory distress, no hypoxia. Patient is aware of her known hernia. No abdominal
tenderness to palpation, vomiting, distention, etc. to suggest incarceration or obstruction. In summary workup generally unremarkable, patient eager to go home and follow-up with her doctor which I feel is reasonable at this time.
Discharge Plan
Departure
Patient Disposition: Home (Routine Discharge)
Date of Disposition: 01/22/25
Time of Disposition: 20:13
Patient with high blood pressure during this ER visit?: No
Discharge Problem:
Fatigue
Instructions: Abdominal Pain
Prescriptions:
No Action
aspirin 81 MG tablet,chewable
81 mg PO HS
albuterol sulfate [Ventolin HFA] 90 MCG/PUFF HFA aerosol inhaler
1 puff inhalation PRN PRN (Reason: sob)
Vit B12
50,000 unit PO DAILY
meloxicam 15 mg Tablet
15 mg PO HS
lisinopril 20 mg Tablet
20 mg PO HS
amlodipine 5 mg Tablet
5 mg PO HS
senna 8.6 mg Capsule
8.6 mg PO HS
pregabalin [Lyrica] 50 mg Capsule
50 mg PO BID
esomeprazole magnesium [address] For Susp In Packet
20 mg PO HS
fluticasone furoate-vilanterol [Breo Ellipta] 200-25 mcg/dose Blister With Device
1 inh INHALATION PRN PRN (Reason: shortness)
duloxetine 60 mg Capsule, Delayed Rel Sprinkle
60 mg PO HS
multivitamin Tablet
1 tab PO DAILY
ferrous sulfate [iron] 325 mg (65 mg iron) Tablet
325 mg PO DAILY
fentanyl 25 mcg/hr Patch 72 Hour
1 patch TRANSDERMAL Q72H
cholecalciferol (vitamin D3) [Vitamin D3] 50 mcg (2,000 unit) Capsule
50 mcg PO DAILY
oxycodone 5 mg tablet
5 mg PO Q6H PRN (Reason: Pain) Qty: 30 0RF
doxycycline monohydrate 100 mg capsule
100 mg PO BID Qty: 14 1RF
Referrals:
Carmen Varela NP [Family Provider, Pulmonary Medicine]
Activity Restrictions/Additional Instructions:
Stay hydrated. Please return here for worsening symptoms otherwise follow-up with your doctor
Interventions
Interventions:
*Risk Screen - Suicide Last Done: 01/22/25 12:50
*General Assessment Last Done: 01/22/25 19:22
*Neglect/Abuse Screening Last Done: 01/22/25 19:22
*ED COVID-19 Vaccine History Last Done: 01/22/25 19:22
*ED Influenza Vaccine History Last Done: 01/22/25 19:22
[facility] Fall Risk Assessment Tool Last Done: 01/22/25 19:22
IJ-Mwzujj-Qaytrfoeen Assessment Last Done: 01/22/25 19:23
Discharge Date and Time
Print Language: MALTESE
[2025-01-22 17:07] LABS: Urine Character Clear (Clear)
[2025-01-22 17:12] LABS: Urine Squamous Cell >30 /LPF (Few)
[2025-01-22 17:13] LABS: Urine Red Blood Cell 0-2 /HPF (0-2)
[2025-01-22 17:14] LABS: Urine White Cell 26-30 /HPF (0-5)
[2025-01-22 17:32] LABS: COVID-19 Antigen Negative (Negative)
[2025-01-22 17:33] LABS: Troponin I 0.014 ng/ml
== END 2025-01-22 21:09 | disposition home or self-care (01) ==
LOC: EMR 12:49
PROVIDERS: Emergency Medicine; Physician Assistant; EMERGENCY PHYSICIAN Emergency Medicine; FAMILY PHYSICIAN Nurse Practitioner Adult Health
DX: R10.9 Unspecified abdominal pain (principal); R06.02 Shortness of breath; R53.83 Other fatigue; J44.9 Chronic obstructive pulmonary disease, unspecified; M79.7 Fibromyalgia; K21.9 Gastro-esophageal reflux disease without esophagitis; E11.9 Type 2 diabetes mellitus without complications; E78.00 Pure hypercholesterolemia, unspecified; I10 Essential (primary) hypertension; I25.10 Atherosclerotic heart disease of native coronary artery without angina pectoris; Z87.891 Personal history of nicotine dependence; Z90.49 Acquired absence of other specified parts of digestive tract; Z93.3 Colostomy status; Z96.642 Presence of left artificial hip joint
CPT/HCPCS: 99284; 70450; 71046; 74176; 80053; 81003; 81015; 83690; 83880; 84484; 85025; 87086; 87502; 87811